=== PATIENT | female | born 1965 | race African-American/Black ===

== ENCOUNTER 2017-01-16 09:00 | Emergency (ER) | payer BC ==
[~2017-01-16] VITALS: Ht 165.1 cm; Wt 79.5 kg
[~2017-01-16 09:00] MED LIST: AMLO1CAP3 PO
[2017-01-16] MEDS ORDERED: BENA10TA3 PO (09:13)
[2017-01-16] MEDS ORDERED: MECLIZINE HCL 25 MG TABLET PO ONE (10:15)
[2017-01-16 12:21] VITALS: BP 130/61
== END 2017-01-16 13:33 | disposition home or self-care (01) ==
LOC: EMS 09:01
DX: R42 Dizziness and giddiness (principal); I10 Essential (primary) hypertension; Z88.0 Allergy status to penicillin
CPT/HCPCS: 70450; 99284; 99285